=== PATIENT | male | born 2000 | race Caucasian/White ===

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

== ENCOUNTER 2021-01-17 20:31 | Emergency (ER) | payer OTHER ==
[~2021-01-17] VITALS: Ht 177.8 cm; Wt 90.7 kg
[2021-01-17 20:33] VITALS: Ht 177.8 cm; Wt 90.7 kg
[2021-01-17] MEDS ORDERED: IBU600 M2 PO (21:35)
[2021-01-17 21:52] VITALS: BP 116/78
== END 2021-01-17 21:52 | disposition home or self-care (01) ==
LOC: ED 20:31
DX: S93.401A Sprain of unspecified ligament of right ankle, initial encounter (principal); W22.8XXA Striking against or struck by other objects, initial encounter; Y93.66 Activity, soccer; Y92.89 Other specified places as the place of occurrence of the external cause; Y99.8 Other external cause status